=== PATIENT | male | born 1990 | race Caucasian/White ===

== ENCOUNTER 2023-10-28 20:55 | Emergency (ER) | payer SELFPAY ==
[2023-10-28 20:57] VITALS: BP 136/88; BMI 32.3
--- NOTE | 2023-10-28 23:46 | ED.GENMED ---
History of Present Illness
General
Chief Complaint: Extremity Pain (non-traumatic)
Source: patient
Exam Limitations: none
Time Seen by Provider: 10/28/23 23:33
Nursing documentation reviewed up to this point in time: agreed with
Travel History
Have you had any contact with someone who has COVID-19?: No
Do you have any symptoms of coronavirus? Fever > 100 degrees, chills, cough, shortness of breath, sore throat, loss of taste or smell, muscle aches, or headache?: No
History of Present Illness
History of Present Illness:
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 Patient reports that he was at work
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 He says he was able to bear weight afterwards but was having increasing pain throughout
the day and when he removed his work boot he had significant swelling of the ankle and was unable to bear weight thereafter, came to the emergency room for assessment. Pain is mainly in the medial malleolus on the left. He denies any other
injuries or complaints including significant knee injury or pain.
Review of Systems
Review of Systems
All Other Systems: ROS reviewed and negative except as documented in HPI and ROS
Musculoskeletal: Reports other (Ankle injury)
Phy Exam
Physical Exam
Physical Exam:
General: Well appearing and non-toxic
HEENT: protecting airway
Neck: appears supple
CV: No evidence of cyanosis
Resp: No accessory muscle use
Abd: Non-distended
Extremities: Patient has chronic appearing deformity of the left ankle with prominent lateral malleolus; has some swelling and bruising along the medial malleolus on the left and significant tenderness of the medial malleolus; he has no midfoot
tenderness on the left, no calcaneal tenderness, no tenderness along the fifth metatarsal; he is a good strong left DP and PT pulse; he has no tenderness in the left knee and moves it through full range of motion; no tenderness in the right ankle
Neuro: Alert
Psych: Normal affect
Skin: Intact
Scores
Heart Failure Risk
Heart Failure Risk Score: Not Applicable
Heart Score for Chest Pain Patients
STEMI patient?: Not applicable
Withdrawal Assessment of Alcohol
Withdrawal Assessment Completed?: Not applicable
Course
Orders/Labs/Results
Orders:
Orders
10/28/23 21:01
Ankle, left 3 view CR [CR Ankle - Left Min 3 Views ] Urgent
Comment:
Reason For Exam: pain
CR Foot - Left Min 3 Views Urgent
Comment:
Reason For Exam: pain
Vital Signs
Initial and Last Documented VS:
Initial Vital Signs
Temp Pulse Resp BP Pulse Ox
36.7 C 82 16 136/88 100
10/28/23 20:57 10/28/23 20:57 10/28/23 20:57 10/28/23 20:57 10/28/23 20:57
Last Documented Vital Signs
Temp Pulse Resp BP Pulse Ox
36.7 C 82 16 136/88 100
10/28/23 20:57 10/28/23 20:57 10/28/23 20:57 10/28/23 20:57 10/28/23 20:57
MDM/Problems Addressed
Differential Diagnosis Includes:
Ankle sprain, ankle fracture, ankle dislocation
MDM/Problems Addressed:
33-year-old male with history as above presents for left ankle injury�she has had recurrent injuries to the ankles in part due to history of Hmejirt-Xutwz-Lcrqj disease. X-rays of the foot and ankle reviewed�he has chronic deformity and changes
suggesting multiple previous injuries but no clear acute fracture. Nevertheless with his difficulty bearing weight and significant tenderness will place in a CAM boot, crutches and have patient remain nonweightbearing until seen by orthopedist.
Advised rest, ice, elevation, Motrin as needed for pain. Patient is comfortable this plan. Spoke about return precautions all questions were answered.
Chronic conditions affecting care:
Dpkjjsh-Jseiu-Xhhtu disease
*Radiology
Radiology exam reviewed: preliminary read by ED provider and radiology read reviewed
*Pulse Oximetry
Patient hypoxic: no
*Critical Care Note
Total Time (30-74mins, 75-104mins- exclusive of procedures): Not Applicable
Data Reviewed
Source: patient
ED Attending Note
-
Portions of this chart may have been created with voice recognition software.� Occasional wrong word or��sound alike� substitutions may have occurred due to the inherent limitations of voice recognition software.
Discharge Plan
Departure
Patient Disposition: Home (Routine Discharge)
Date of Disposition: 10/28/23
Time of Disposition: 23:43
Patient with high blood pressure during this ER visit?: No
Discharge Problem:
Injury of ankle, left
Instructions: Ankle Fracture ED
Referrals:
Gunnar Garcia DPM [Active] - Call in 1-3 days for appt (Orthopedics--[employer] Member)
Yosvany Olivares MD [Family Provider] -
Stand Alone Forms: Return to Work
Activity Restrictions/Additional Instructions:
Thank you for visiting the Emergency Department at [facility].
1. Please schedule a follow up appointment as directed. Call first thing tomorrow morning to make an appointment.
2. If indicated, please take your medications as instructed and indicated on discharge paperwork.
3. If any of your symptoms do not improve, or persist, or become more severe within 6-12 hours, please return to the emergency department for further care.
4. Please return to the emergency department if you develop a headache, neck pain/stiffness, fever greater than 100.4F, chest pain, shortness of breath, persistent nausea, vomiting, slurred speech, difficulty walking, numbness/tingling, weakness,
signs of infection or any other symptoms that are worrisome to you.
Please call [phone] if you have any questions.
Interventions
Interventions:
*Risk Screen - Suicide Last Done: 10/28/23 20:57
*General Assessment Last Done: 10/28/23 23:33
*Neglect/Abuse Screening Last Done: 10/28/23 20:57
*ED COVID-19 Vaccine History Last Done: 10/28/23 20:57
ED-Skin Assessment Last Done: 10/28/23 23:36
ED-Peripheral Vascular Assessment Last Done: 10/28/23 23:36
ED-Musculoskeletal Assessment Last Done: 10/28/23 23:34
Discharge Date and Time
Print Language: DANISH
[2023-10-29 00:07] VITALS: BP 127/85
[2023-10-29 00:08] VITALS: BP 127/85
== END 2023-10-29 00:10 | disposition home or self-care (01) ==
LOC: EMR 20:55
PROVIDERS: EMERGENCY PHYSICIAN Emergency Medicine; FAMILY PHYSICIAN Internal Medicine
DX: S99.912A Unspecified injury of left ankle, initial encounter (principal); X50.1XXA Overexertion from prolonged static or awkward postures, initial encounter; G60.0 Hereditary motor and sensory neuropathy
CPT/HCPCS: 99283; 73610; 73630